=== PATIENT | male | born 1990 | race Caucasian/White ===

== ENCOUNTER 2022-07-06 10:56 | Emergency (ER) | payer SELFPAY ==
[2022-07-06] MEDS ORDERED: Acetaminophen/Codeine 30-300mg Tablet ONE (12:35)
[2022-07-06] MEDS ORDERED: Lidocaine 2% PF 5 ML VIAL ONE (12:36)
[2022-07-06] MEDS ORDERED: Lidocaine 1% (PF) 30 ML VIAL ONE (12:36)
== END 2022-07-06 13:57 | disposition home or self-care (01) ==
LOC: CSHERS 10:56
DX: L02.214 Cutaneous abscess of groin (principal); N50.82 Scrotal pain; F17.210 Nicotine dependence, cigarettes, uncomplicated
CPT/HCPCS: 10060; J2001

== ENCOUNTER 2022-08-30 23:23 | Emergency (ER) | payer SELFPAY ==
[2022-08-31] MEDS ORDERED: Morphine 4 MG/ML VIAL ONE (02:01)
[2022-08-31] MEDS ORDERED: Ketorolac Tromethamine 30 MG/ML VIAL ONE (02:02)
== END 2022-08-31 02:05 | disposition home or self-care (01) ==
LOC: CSHERS 23:23
DX: H60.92 Unspecified otitis externa, left ear (principal); R59.0 Localized enlarged lymph nodes; F17.210 Nicotine dependence, cigarettes, uncomplicated
CPT/HCPCS: 96372; 99283; J1885; J2270

== ENCOUNTER 2022-10-04 18:28 | Emergency (ER) | payer SELFPAY ==
[2022-10-04] MEDS ORDERED: Lidocaine 1% PF 5 ML VIAL ONE (21:31)
== END 2022-10-04 22:12 | disposition home or self-care (01) ==
LOC: CSHERS 18:28
DX: L02.31 Cutaneous abscess of buttock (principal); L03.211 Cellulitis of face; F17.210 Nicotine dependence, cigarettes, uncomplicated
CPT/HCPCS: 10060